=== PATIENT | female | born 1970 | race Hispanic/Latino ===

== ENCOUNTER 2021-01-10 17:20 | Emergency (ER) | payer SELFPAY ==
[2021-01-10] MEDS ORDERED: Ketorolac Tromethamine 30 MG/ML VIAL ONE (20:17)
== END 2021-01-10 20:57 | disposition home or self-care (01) ==
LOC: ERS 17:20
DX: R07.89 Other chest pain (principal)
CPT/HCPCS: 71045; 96372; J1885